=== PATIENT | male | born 1965 | race Caucasian/White ===

== ENCOUNTER 2017-01-05 18:38 | Observation (INO) | payer OTHER ==
[~2017-01-05] VITALS: Ht 182.9 cm; Wt 159.0 kg
[~2017-01-05 18:38] MED LIST: ADVAIR 250/501 DISK IH; ALBUTEROL17 GM IH; ASPIR-LOW81 MG PO; DEPAKOTE 1000 MG; DEPAKOTE500 MG PO; DOXYCYCLINE HY100 MG PO; HYCODAN SYRUP480 ML PO; HYDROCHLOROTH12.5 M1 PO; HYDRODIURIL,ORE25 MG; METHOCARBAMOL500 MG PO; PERCOCET 5/31 TABLET PO; PROAIR HFA8.5 GM IH; TRILIPIX135 MG PO; TRILIPIX45 MG PO; VALIUM5 MG PO; ZOCOR20 MG PO
[2017-01-05 19:01] LABS: HEMATOCRIT 46.9 % (38.0-50.0); MCV 84.5 FL (86-99); MEAN PLAT.VOLUME 10.3 uM^3 (9.0-12.4); PLATELET COUNT 284 K/uL (156-360); RBC DIS.WIDTH-CV 13.4 % (11.8-14.6); RBC DIS.WIDTH-SD 41.5 % (39-53); RED BLOOD COUNT 5.55 M/uL (4.00-5.50); WHITE BLOOD COUNT 9.8 K/uL (4.1-10.2)
[2017-01-05 19:10] LABS: CHLORIDE 103 mEq/L (99-109); POTASSIUM 4.1 mEq/L (3.7-5.4); SODIUM 138 mEq/L (136-147)
[2017-01-05 19:11] LABS: GLUCOSE 115 mg/dL (70-99)
[2017-01-05 19:13] LABS: ANION GAP 12 MEQ/L (2-14)
[2017-01-05 19:15] LABS: GFR ESTIMATE (CALCULATED) > 59 mL/min/
[2017-01-05 19:16] LABS: UREA NITROGEN (BUN) 13 mg/dL (9-23)
[2017-01-05 19:21] LABS: TROP-I INTERPRETATION NEGATIVE; TROPONIN-I < 0.01 ng/mL (0.0-0.30)
[2017-01-05] MEDS ORDERED: LUBRICANT DRY E15 ML BOTH EYES (20:32)
[2017-01-05] MEDS ORDERED: TYLENOL EXTRA500 MG PO (20:33)
[2017-01-05 22:38] VITALS: BP 129/94
[2017-01-06 00:56] LABS: TROP-I INTERPRETATION NEGATIVE; TROPONIN-I < 0.01 ng/mL (0.0-0.30)
[2017-01-06 04:27] VITALS: BP 142/70
[2017-01-06 05:32] LABS: HEMATOCRIT 43.7 % (38.0-50.0); MCH 26.7 PG (29.0-34.0); MCV 83.4 FL (86-99); MEAN PLAT.VOLUME 10.5 uM^3 (9.0-12.4); PLATELET COUNT 233 K/uL (156-360); RBC DIS.WIDTH-CV 13.6 % (11.8-14.6); RBC DIS.WIDTH-SD 41.6 % (39-53); RED BLOOD COUNT 5.24 M/uL (4.00-5.50); WHITE BLOOD COUNT 9.8 K/uL (4.1-10.2)
[2017-01-06 05:50] LABS: TROP-I INTERPRETATION NEGATIVE; TROPONIN-I < 0.01 ng/mL (0.0-0.30)
[2017-01-06 05:55] LABS: ANION GAP 9 MEQ/L (2-14); CHLORIDE 102 MEQ/L (99-109); GFR ESTIMATE (CALCULATED) > 59 mL/min/; GLUCOSE 92 mg/dL (70-99); POTASSIUM 4.3 MEQ/L (3.7-5.4); SAMPLE HEMOLYSIS CHECK 0; SAMPLE ICTERIC CHECK 0; SAMPLE LIPEMIA CHECK 0; SODIUM 137 MEQ/L (136-147); UREA NITROGEN (BUN) 14 mg/dL (9-23)
[2017-01-06 06:03] LABS: INTER. NORMALIZED RATIO 1.1; PROTHROMBIN TIME 11.7 (9.2-11.2); PTT 27.3 (25-32)
[2017-01-06 07:18] VITALS: BP 136/84
[2017-01-06] MEDS ORDERED: ASPIRIN EC325 MG PO (11:08)
== END 2017-01-06 11:48 | disposition home or self-care (01) ==
LOC: EME 18:38 → EDOF 20:11 → 5WEST 22:11
PROVIDERS: Hospitalist
DX: R07.89 Other chest pain (principal); M25.512 Pain in left shoulder; E66.9 Obesity, unspecified; Z68.42 Body mass index [BMI] 45.0-49.9, adult; F17.200 Nicotine dependence, unspecified, uncomplicated; G40.909 Epilepsy, unspecified, not intractable, without status epilepticus; E78.00 Pure hypercholesterolemia, unspecified; I71.6 Thoracoabdominal aortic aneurysm, without rupture
CPT/HCPCS: 70498; 71020; 71275; 73221; 80048; 84484; 85027; 85610; 85730; 93005; 99202; 99281; 99285; G0378; J1650; J2270

== ENCOUNTER 2017-09-06 19:37 | Emergency (ER) | payer OTHER ==
[~2017-09-06] VITALS: Ht 182.9 cm; Wt 144.2 kg
[~2017-09-06 19:37] MED LIST changes: +ASPIRIN EC325 MG PO; +AUGMENTIN875 MG PO; +LUBRICANT DRY E15 ML BOTH EYES; +NORCO 5/3251 TABLET PO; +TYLENOL EXTRA500 MG PO
[2017-09-06 20:24] LABS: HEMATOCRIT 42.8 % (38.0-50.0); MCH 27.1 PG (29.0-34.0); MCHC 33.2 G/DL (30.0-36.0); MCV 81.7 FL (86-99); MEAN PLAT.VOLUME 10.3 uM^3 (9.0-12.4); PLATELET COUNT 223 K/uL (156-360); RBC DIS.WIDTH-CV 14.4 % (11.8-14.6); RBC DIS.WIDTH-SD 42.6 % (39-53); RED BLOOD COUNT 5.24 M/uL (4.00-5.50); WHITE BLOOD COUNT 5.4 K/uL (4.1-10.2)
[2017-09-06 20:35] LABS: CHLORIDE 100 mEq/L (99-109); POTASSIUM 3.9 mEq/L (3.7-5.4); SODIUM 131 mEq/L (136-147)
[2017-09-06 20:36] LABS: GLUCOSE 110 mg/dL (70-99)
[2017-09-06 20:38] LABS: ANION GAP 8 MEQ/L (2-14)
[2017-09-06 20:40] LABS: GFR ESTIMATE (CALCULATED) > 59 mL/min/ (58.99-99999)
[2017-09-06 20:41] LABS: UREA NITROGEN (BUN) 14 mg/dL (9-23)
[2017-09-06 20:46] LABS: TROP-I INTERPRETATION NEGATIVE; TROPONIN-I < 0.01 ng/mL (0.0-0.30)
[2017-09-06] MEDS ORDERED: LEVAQUIN750 MG PO (23:18)
[2017-09-06 23:34] VITALS: BP 112/80
== END 2017-09-06 23:34 | disposition home or self-care (01) ==
LOC: EME → EDBD 19:37 → EME 23:34
PROVIDERS: Emergency Medicine
DX: J06.9 Acute upper respiratory infection, unspecified (principal); R50.9 Fever, unspecified; I10 Essential (primary) hypertension; E78.5 Hyperlipidemia, unspecified; R56.9 Unspecified convulsions; Z87.442 Personal history of urinary calculi; F17.200 Nicotine dependence, unspecified, uncomplicated
CPT/HCPCS: 71020; 80048; 84484; 85027; 87502; 93005; 94640; 99281; 99285; J7030